=== PATIENT | female | born 2000 ===

== ENCOUNTER 2020-11-29 03:18 | Emergency (ER) | payer SELFPAY ==
[2020-11-29 03:35] VITALS: BP 118/81
[2020-11-29] MEDS ORDERED: diphenhydrAMINE 25 MG CAP PO ONE (03:41)
--- NOTE | 2020-11-29 07:23 | Emergency Department Report ---
HPI - General Chief Complaint: Allergic Reaction PUI?: No Time Seen by Provider: 11/29/20 07:16 - HPI HPI: 20-year-old patient female who is 10 weeks presents to the emergency room reporting she she had a rash that started her upper body and face took Benadryl and it seemed to improve and went away when it worn off the rash reappeared. Patient states she is even taken Benadryl. Patient reports that the rashes on her face chest abdomen lower extremities upper extremities. Patient denies any shortness of breath no difficulty swallowing but does admit to dry mouth and Benadryl. Patient denies any TALKBACK HOST complaints. ED Past Medical Hx - Social History Smoking Status: Never Smoker Substance Use Type: None - Medications Home Medications: Home Medications Medication Instructions Recorded Confirmed Last Taken Type Cetirizine HCl [Zyrtec 10mg tab] 10 mg PO QDAY #15 tablet 11/29/20 Unknown Rx Famotidine [Pepcid] 20 mg PO BID #30 tablet 11/29/20 Unknown Rx Prednisone [predniSONE 5 mg (6-Day 5 mg PO .TAPER #1 tab.ds.pk 11/29/20 Unknown Rx Pack, 21 Tabs)] ED Review of Systems ROS: Stated complaint: ALLERGIC REACTOON Other details as noted in HPI Comment: All other systems reviewed and negative Physical Exam - Physical Exam Vital Signs: Vital Signs 11/29/20 03:21 Temperature 98.8 F Pulse Rate 105 Respiratory 18 L Rate Blood Pressure 118/81 O2 Sat by Pulse 100 Oximetry Physical Exam: GENERAL APPEARANCE: Well developed, well nourished, in no acute distress. SKIN: Inspection of the skin reveals mild erythematous rashes, HEENT: The sclerae were anicteric and conjunctivae were pink and moist. Extraocular movements were intact and pupils were equal, round, and reactive to light with normal accommodation. External inspection of the ears and nose showed no scars, lesions, or masses. Lips, teeth, and gums showed normal mucosa. NECK: Supple and symmetric. LUNGS: Auscultation of the lungs revealed normal breath sounds without any other adventitious sounds or rubs. CARDIOVASCULAR: There was a regular rate and rhythm EXTREMITIES: No cyanosis, clubbing or edema. NEUROLOGIC: Alert and oriented x 3. Normal affect. ED Course Vital Signs 11/29/20 03:21 Temperature 98.8 F Pulse Rate 105 Respiratory 18 L Rate Blood Pressure 118/81 O2 Sat by Pulse 100 Oximetry ED Medical Decision Making - Medical Decision Making 20-year-old patient female who is 10 weeks presents to the emergency room reporting she she had a rash that started her upper body and face took Benadryl and it seemed to improve and went away when it worn off the rash r eappeared. Patient states she is even taken Benadryl. Patient reports that the rashes on her face chest abdomen lower extremities upper extremities. Patient denies any shortness of breath no difficulty swallowing but does admit to dry mouth and Benadryl. Patient denies any TALKBACK HOST complaints. Benadryl given by JAEL Maynard. Ordered prednisone 40 mg p.o. and Pepcid 40 mg p.o. Patient be discharged home on a prednisone pack and Pepcid instructed to take Zyrtec's avoid the defending agent and follow-up with her [employer]. Critical care attestation.: If time is entered above; I have spent that time in minutes in the direct care of this critically ill patient, excluding procedure time. ED Disposition Clinical Impression: Allergic reaction Qualifiers: Encounter type: initial encounter Qualified Code(s): T78.40XA - Allergy, unspecified, initial encounter Disposition: - TO HOME OR SELFCARE Is pt being admited?: No Does the pt Need Aspirin: No Condition: Stable Instructions: Allergies, Adult, [id number] Additional Instructions: Please take medication as prescribed. Follow-up with your [employer]. Also recommend to follow-up with an farm consultant if this continues. Prescriptions: Famotidine [Pepcid] 20 mg PO BID #30 tablet Prednisone [predniSONE 5 mg (6-Day Pack, 21 Tabs)] 5 mg PO .TAPER #1 tab.ds.pk Cetirizine HCl [Zyrtec 10mg tab] 10 mg PO QDAY #15 tablet Referrals: Your, [employer] [Other] - 3-5 Days [facility] [Provider Group] - 3-5 Days Time of Disposition: 07:34
[2020-11-29] MEDS ORDERED: FAMOTIDINE 20 MG TAB PO ONE (07:27)
[2020-11-29] MEDS ORDERED: predniSONE 20 MG TAB PO ONE (07:27)
== END 2020-11-29 07:40 | disposition home or self-care (01) ==
LOC: EDBD → ED 03:18
DX: T78.40XA Allergy, unspecified, initial encounter (principal); Z79.899 Other long term (current) drug therapy; Y93.89 Activity, other specified
CPT/HCPCS: 99283; J7512